=== PATIENT | male | born 1970 | race Caucasian/White ===

== ENCOUNTER 2020-03-16 22:35 | Observation (INO) ==
[2020-03-16] MEDS: Nitroglycerin 0.4 MG TAB.SUBL SL PRN ×2 (23:03→23:09)
[2020-03-16 23:09] LABS: Basophils % 0.1 %; Hematocrit 49.4 % (37.5-50.1); Hemoglobin 16.9 g/dL (12.9-16.9); Immature Granulocytes % 0.5 % (0-4); Lymphocytes # 0.4 K/mcL (0.6-4.6); Lymphocytes % 4.1 %; Mean Corpuscular HGB Conc 34.2 g/dL (31.6-35.5); Mean Corpuscular Hemoglobin 31.4 pg (28.0-33.3); Mean Corpuscular Volume 91.7 fL (83.0-100.0); Mean Platelet Volume 11.2 fL (9.4-12.4); Monocytes # 0.2 K/mcL (0.0-1.3); Monocytes % 1.7 %; Neutrophils # 9.5 K/mcL (1.6-8.9); Platelet Count 166 K/mcL (140-400); Red Blood Count 5.39 M/mcL (4.19-5.50); Red Cell Distribution Width 12.3 % (11.5-14.5); Segmented Neutrophils % 93.6 %; White Blood Count 10.2 K/mcL (4.3-11.1)
[2020-03-16] MEDS ORDERED: 0.9 % Sodium Chloride 1,000 ML ONE (23:19)
[2020-03-16] MEDS ORDERED: 0.9 % Sodium Chloride 1,000 ML IV ONE (23:22)
[2020-03-16 23:33] LABS: BUN/Creatinine Ratio 14 (6-26); Blood Urea Nitrogen 11 mg/dL (6-20); Calcium 9.3 mg/dL (8.6-10.3); Carbon Dioxide 24 mEq/L (23-29); Chloride 105 mEq/L (98-107); Glucose 154 mg/dL (70-105); Osmolality,Calculated 288 (280-300); Potassium 3.8 mEq/L (3.5-5.1); Sodium 138 mEq/L (136-145); eGFR For African Americans > 60 (> 60); eGFR For Non-African Americans > 60 (> 60)
[2020-03-16 23:35] LABS: Troponin I < 0.03 ng/mL (< 0.04)
[2020-03-17] MEDS ORDERED: Naloxone 0.4 MG/ML INJ IVP PRN (05:19)
[2020-03-17] MEDS ORDERED: Perflutren Lipid Microsphere 1.3 ML in 0.9 % Sodium Chloride 8.7 ML IVP PRN (06:13)
[2020-03-17 06:41] LABS: Basophils % 0.2 %; Hematocrit 44.8 % (37.5-50.1); Hemoglobin 15.3 g/dL (12.9-16.9); Immature Granulocytes % 0.3 % (0-4); Lymphocytes % 8.5 %; Mean Corpuscular HGB Conc 34.2 g/dL (31.6-35.5); Mean Corpuscular Hemoglobin 31.8 pg (28.0-33.3); Mean Corpuscular Volume 93.1 fL (83.0-100.0); Mean Platelet Volume 12.1 fL (9.4-12.4); Monocytes # 0.7 K/mcL (0.0-1.3); Monocytes % 5.9 %; Neutrophils # 10.2 K/mcL (1.6-8.9); Platelet Count 152 K/mcL (140-400); Red Blood Count 4.81 M/mcL (4.19-5.50); Red Cell Distribution Width 12.4 % (11.5-14.5); Segmented Neutrophils % 85.1 %
[2020-03-17 06:50] LABS: BUN/Creatinine Ratio 14 (6-26); Blood Urea Nitrogen 10 mg/dL (6-20); Calcium 8.4 mg/dL (8.6-10.3); Carbon Dioxide 17 mEq/L (23-29); Chloride 109 mEq/L (98-107); Glucose 125 mg/dL (70-105); Osmolality,Calculated 283 (280-300); Potassium 4.1 mEq/L (3.5-5.1); Sodium 136 mEq/L (136-145); eGFR For African Americans > 60 (> 60); eGFR For Non-African Americans > 60 (> 60)
[2020-03-17] MEDS ORDERED: Regadenoson 0.4 MG/5 ML SYRINGE IVP ONE (08:16)
[2020-03-17 15:48] VITALS: BP 164/85
[2020-03-17 15:58] LABS: Hemoglobin 15.4 g/dL (12.9-16.9)
[2020-03-17 16:04] LABS: Basophils % 0.3 %; Eosinophils % 0.4 %; Hematocrit 46.2 % (37.5-50.1); Immature Granulocytes % 0.2 % (0-4); Lymphocytes # 1.9 K/mcL (0.6-4.6); Lymphocytes % 19.9 %; Mean Corpuscular HGB Conc 33.3 g/dL (31.6-35.5); Mean Corpuscular Hemoglobin 30.9 pg (28.0-33.3); Mean Corpuscular Volume 92.8 fL (83.0-100.0); Mean Platelet Volume 11.3 fL (9.4-12.4); Monocytes # 0.7 K/mcL (0.0-1.3); Monocytes % 7.3 %; Neutrophils # 6.9 K/mcL (1.6-8.9); Platelet Count 147 K/mcL (140-400); Red Blood Count 4.98 M/mcL (4.19-5.50); Red Cell Distribution Width 12.7 % (11.5-14.5); Segmented Neutrophils % 71.9 %; White Blood Count 9.6 K/mcL (4.3-11.1)
[2020-03-17 16:11] LABS: BUN/Creatinine Ratio 13 (6-26); Blood Urea Nitrogen 9 mg/dL (6-20); Calcium 8.5 mg/dL (8.6-10.3); Carbon Dioxide 26 mEq/L (23-29); Chloride 109 mEq/L (98-107); Glucose 97 mg/dL (70-105); Osmolality,Calculated 289 (280-300); Potassium 3.6 mEq/L (3.5-5.1); Sodium 140 mEq/L (136-145); eGFR For African Americans > 60 (> 60); eGFR For Non-African Americans > 60 (> 60)
[2020-03-17] MEDS ORDERED: lisinopriL 5 MG TABLET PO SCH (16:30)
== END 2020-03-17 17:59 | disposition home or self-care (01) ==
LOC: 3BNU 22:35 → EMEROOARM 22:35 → 3BNU 03-17 01:07
PROVIDERS: ADMIT Internal Medicine; ATTEND Internal Medicine

== ENCOUNTER 2020-03-24 10:49 | Observation (INO) ==
[2020-03-24] MEDS ORDERED: 0.9 % Sodium Chloride 1,000 ML IVC ONE (11:08)
[2020-03-24] MEDS ORDERED: Magnesium Sulfate 1 GM/102 ML PIGGYBACK IVPB ONE (11:09)
[2020-03-24 11:30] LABS: Basophils # 0.1 K/mcL (0.0-0.2); Basophils % 0.8 %; Eosinophils # 0.2 K/mcL (0.0-0.6); Eosinophils % 2.5 %; Hematocrit 55.3 % (37.5-50.1); Hemoglobin 18.2 g/dL (12.9-16.9); Immature Granulocytes % 0.5 % (0-4); Lymphocytes # 2.3 K/mcL (0.6-4.6); Mean Corpuscular HGB Conc 32.9 g/dL (31.6-35.5); Mean Corpuscular Hemoglobin 30.5 pg (28.0-33.3); Mean Corpuscular Volume 92.8 fL (83.0-100.0); Mean Platelet Volume 11.7 fL (9.4-12.4); Monocytes # 0.9 K/mcL (0.0-1.3); Monocytes % 11.8 %; Platelet Count 195 K/mcL (140-400); Red Blood Count 5.96 M/mcL (4.19-5.50); Red Cell Distribution Width 12.5 % (11.5-14.5); Segmented Neutrophils % 53.4 %; White Blood Count 7.5 K/mcL (4.3-11.1)
[2020-03-24 11:47] LABS: Magnesium 1.9 mg/dL (1.6-2.6); Troponin I < 0.03 ng/mL (< 0.04)
[2020-03-24 11:56] LABS: Thyroid Stimulating Hormone 0.439 mcIU/mL (0.340-5.600)
[2020-03-24 12:04] LABS: Bilirubin,Urine Negative (Negative); Blood,Urine Negative (Negative); Clarity,Urine Clear (Clear); Color,Urine Light-Yellow (Yellow); Glucose,Urine (UA) Normal (Normal); Ketones,Urine Negative (Negative); Leukocyte Esterase,Urine Negative (Negative); Nitrite,Urine Negative (Negative); Protein,Urine Trace mg/dL (Neg-Trace); Specific Gravity,Urine 1.017 (1.010-1.025); Urobilinogen,Urine Normal (Normal)
[2020-03-24 12:32] LABS: INR 1.1; Prothrombin Time 12.2 Seconds (9.4-12.1)
[2020-03-24 12:35] LABS: Activated Partial Thrombo Time 28.2 Seconds (26.0-36.0)
[2020-03-24] MEDS ORDERED: Aspirin 325 MG TABLET PO ONE (12:52)
[2020-03-24] MEDS ORDERED: Naloxone 0.4 MG/ML INJ IVP PRN (13:38)
[2020-03-24 13:42] LABS: Alanine Aminotransferase 15 Units/L (7-52); Albumin 4.6 g/dL (3.5-5.7); Albumin/Globulin Ratio 1.8 (1.1-2.2); Alkaline Phosphatase 41 Units/L (34-104); Aspartate Amino Transferase 19 Units/L (13-39); BUN/Creatinine Ratio 11 (6-26); Bilirubin,Total 1.3 mg/dL (0.3-1.0); Blood Urea Nitrogen 10 mg/dL (6-20); Calcium 9.7 mg/dL (8.6-10.3); Carbon Dioxide 23 mEq/L (23-29); Chloride 100 mEq/L (98-107); Globulin 2.6 g/dL (2.4-3.5); Glucose 121 mg/dL (70-105); Osmolality,Calculated 282 (280-300); Potassium 3.8 mEq/L (3.5-5.1); Sodium 136 mEq/L (136-145); Total Protein 7.2 g/dL (6.4-8.9); eGFR For African Americans > 60 (> 60); eGFR For Non-African Americans > 60 (> 60)
[2020-03-24] MEDS ORDERED: Acetaminophen 325 MG TABLET PO PRN (14:51)
[2020-03-24] MEDS: *HR* HYDROcodone/Acet 5/325 mg TABLET PO PRN (15:29)
[2020-03-24] MEDS: 0.9 % Sodium Chloride 1,000 ML IVC SCH (15:30)
[2020-03-24] MEDS: *HR* Heparin 5,000 UNIT/ML VIAL SQ SCH (17:37)
[2020-03-25 02:49] LABS: Basophils # 0.1 K/mcL (0.0-0.2); Basophils % 1.2 %; Eosinophils # 0.4 K/mcL (0.0-0.6); Eosinophils % 4.8 %; Hematocrit 50.5 % (37.5-50.1); Immature Granulocytes % 0.4 % (0-4); Lymphocytes % 39.4 %; Mean Corpuscular HGB Conc 33.7 g/dL (31.6-35.5); Mean Corpuscular Hemoglobin 31.6 pg (28.0-33.3); Mean Corpuscular Volume 93.9 fL (83.0-100.0); Mean Platelet Volume 11.7 fL (9.4-12.4); Monocytes % 12.6 %; Neutrophils # 3.2 K/mcL (1.6-8.9); Platelet Count 162 K/mcL (140-400); Red Blood Count 5.38 M/mcL (4.19-5.50); Red Cell Distribution Width 12.6 % (11.5-14.5); Segmented Neutrophils % 41.6 %; White Blood Count 7.7 K/mcL (4.3-11.1)
[2020-03-25 03:08] LABS: BUN/Creatinine Ratio 15 (6-26); Blood Urea Nitrogen 12 mg/dL (6-20); Calcium 8.8 mg/dL (8.6-10.3); Carbon Dioxide 28 mEq/L (23-29); Chloride 103 mEq/L (98-107); Cholesterol 152 mg/dL (< 200); Glucose 138 mg/dL (70-105); HDL Cholesterol 38 mg/dL (40-59); LDL Cholesterol,Calculated 76 mg/dL (< 100); Osmolality,Calculated 288 (280-300); Potassium 3.3 mEq/L (3.5-5.1); Sodium 138 mEq/L (136-145); Triglycerides 190 mg/dL (< 150); eGFR For African Americans > 60 (> 60); eGFR For Non-African Americans > 60 (> 60)
[2020-03-25 04:17] LABS: Estimated Average Glucose 108 mg/dl
[2020-03-25] MEDS: 0.9 % Sodium Chloride 1,000 ML IVC SCH (05:34)
[2020-03-25] MEDS: *HR* HYDROcodone/Acet 5/325 mg TABLET PO PRN (05:34)
[2020-03-25] MEDS: *HR* Heparin 5,000 UNIT/ML VIAL SQ SCH (05:35)
[2020-03-25] MEDS ORDERED: lisinopriL 5 MG TABLET PO SCH (09:00)
[2020-03-25] MEDS ORDERED: Aspirin 81 MG TAB.CHEW PO SCH (09:00)
[2020-03-25 11:17] VITALS: BP 153/87
[2020-03-25] MEDS ORDERED: Metoprolol XL (24 HR) Succ 25 MG TAB.ER.24H PO SCH (13:00)
== END 2020-03-25 14:46 | disposition home or self-care (01) ==
LOC: 3BNU 10:49 → EMEROOARM 10:49 → SUATTDRO 13:56 → 3BNU 15:04
PROVIDERS: ADMIT Internal Medicine; ATTEND Internal Medicine

== ENCOUNTER 2020-11-06 15:02 | Observation (INO) ==
[2020-11-06] MEDS ORDERED: Aspirin 81 MG TAB.CHEW PO STA (16:54)
[2020-11-06 17:48] LABS: Basophils # 0.1 K/mcL (0.0-0.2); Basophils % 1.2 %; Eosinophils # 0.3 K/mcL (0.0-0.6); Eosinophils % 4.6 %; Hematocrit 43.3 % (37.5-50.1); Hemoglobin 15.4 g/dL (12.9-16.9); Immature Granulocytes % 0.3 % (0-4); Lymphocytes # 2.3 K/mcL (0.6-4.6); Lymphocytes % 33.4 %; Mean Corpuscular HGB Conc 35.6 g/dL (31.6-35.5); Mean Corpuscular Hemoglobin 32.3 pg (28.0-33.3); Mean Corpuscular Volume 90.8 fL (83.0-100.0); Mean Platelet Volume 11.6 fL (9.4-12.4); Monocytes # 0.8 K/mcL (0.0-1.3); Monocytes % 11.2 %; Neutrophils # 3.4 K/mcL (1.6-8.9); Platelet Count 161 K/mcL (140-400); Red Blood Count 4.77 M/mcL (4.19-5.50); Red Cell Distribution Width 11.9 % (11.5-14.5); Segmented Neutrophils % 49.3 %; White Blood Count 6.9 K/mcL (4.3-11.1)
[2020-11-06 18:08] LABS: BUN/Creatinine Ratio 13 (6-26); Blood Urea Nitrogen 12 mg/dL (6-20); Calcium 8.8 mg/dL (8.6-10.3); Carbon Dioxide 29 mEq/L (23-29); Chloride 100 mEq/L (98-107); Glucose 99 mg/dL (70-105); Osmolality,Calculated 280 (280-300); Potassium 3.2 mEq/L (3.5-5.1); Sodium 135 mEq/L (136-145); eGFR For African Americans > 60 (> 60); eGFR For Non-African Americans > 60 (> 60)
[2020-11-06 18:09] LABS: Troponin I < 0.03 ng/mL (< 0.04)
[2020-11-06] MEDS ORDERED: 0.9 % Sodium Chloride 500 ML IVC STA (19:21)
[2020-11-06] MEDS ORDERED: Isovue-370 500 ML BOTTLE IVP ONE (19:23)
[2020-11-06 20:29] LABS: Troponin I < 0.03 ng/mL (< 0.04)
[2020-11-07] MEDS ORDERED: Naloxone 0.4 MG/ML INJ IVP PRN (01:53)
[2020-11-07] MEDS ORDERED: Ondansetron 4 MG/2 ML VIAL IVP PRN (01:53)
[2020-11-07] MEDS ORDERED: Acetaminophen 325 MG TABLET PO PRN (01:53)
[2020-11-07] MEDS ORDERED: Melatonin 3 MG TABLET PO PRN (01:53)
[2020-11-07 04:06] LABS: Hematocrit 45.4 % (37.5-50.1); Hemoglobin 16.2 g/dL (12.9-16.9); Mean Corpuscular HGB Conc 35.7 g/dL (31.6-35.5); Mean Corpuscular Hemoglobin 32.3 pg (28.0-33.3); Mean Corpuscular Volume 90.6 fL (83.0-100.0); Mean Platelet Volume 11.5 fL (9.4-12.4); Platelet Count 146 K/mcL (140-400); Red Blood Count 5.01 M/mcL (4.19-5.50); Red Cell Distribution Width 11.9 % (11.5-14.5); White Blood Count 6.8 K/mcL (4.3-11.1)
[2020-11-07 04:23] LABS: Alanine Aminotransferase 23 Units/L (7-52); Albumin/Globulin Ratio 2.1 (1.1-2.2); Alkaline Phosphatase 34 Units/L (34-104); Aspartate Amino Transferase 21 Units/L (13-39); BUN/Creatinine Ratio 15 (6-26); Bilirubin,Total 1.1 mg/dL (0.3-1.0); Blood Urea Nitrogen 12 mg/dL (6-20); Calcium 8.9 mg/dL (8.6-10.3); Carbon Dioxide 26 mEq/L (23-29); Chloride 103 mEq/L (98-107); Globulin 1.9 g/dL (2.4-3.5); Glucose 164 mg/dL (70-105); Osmolality,Calculated 283 (280-300); Phosphorous 2.1 mg/dL (2.7-4.5); Sodium 135 mEq/L (136-145); Total Protein 5.9 g/dL (6.4-8.9); Troponin I < 0.03 ng/mL (< 0.04); eGFR For African Americans > 60 (> 60); eGFR For Non-African Americans > 60 (> 60)
[2020-11-07] MEDS ORDERED: Potassium Chloride 40 MEQ, Lidocaine 1% 2 ML in 0.9 % Sodium Chloride 500 ML IVPB ONE (05:54)
[2020-11-07] MEDS ORDERED: Perflutren Lipid Microsphere 1.3 ML in 0.9 % Sodium Chloride 8.7 ML IVP PRN (08:09)
[2020-11-07 10:38] VITALS: BP 114/68
[2020-11-07 11:11] LABS: Estimated Average Glucose 123 mg/dl; Hemoglobin A1C 5.9 %
[2020-11-07 12:27] LABS: Chol/HDL Ratio 2.8 (0-4.9)
[2020-11-07 12:40] LABS: Thyroid Stimulating Hormone 0.546 mcIU/mL (0.340-5.600)
[2020-11-07] MEDS ORDERED: *HR* Heparin 5,000 UNIT/ML VIAL SQ SCH (18:00)
[2020-11-08] MEDS ORDERED: Metoprolol XL (24 HR) Succ 25 MG TAB.ER.24H PO SCH (09:00)
[2020-11-08] MEDS ORDERED: lisinopriL 5 MG TABLET PO SCH (09:00)
[2020-11-08] MEDS ORDERED: Aspirin 81 MG TAB.CHEW PO SCH (09:00)
== END 2020-11-07 14:58 | disposition home or self-care (01) ==
LOC: CDU 15:02 → EMEROOARM 15:02 → SUATTDRO 23:37 → CDU 11-07 00:05
PROVIDERS: ADMIT Internal Medicine; ATTEND Internal Medicine